=== PATIENT | female | born 1960 | race Caucasian/White ===

== ENCOUNTER 2018-01-02 01:47 | Emergency (ER) | payer OTHER ==
[~2018-01-02] VITALS: Ht 165.1 cm; Wt 70.0 kg
[2018-01-02] MEDS ORDERED: PRED10TA PO (02:33)
[2018-01-02] MEDS ORDERED: OXYC-307 PO (02:33)
[2018-01-02] MEDS ORDERED: BUDE10.2 INH (02:33)
[2018-01-02] MEDS ORDERED: PREG50CA PO (02:33)
[2018-01-02] MEDS ORDERED: CELE200C PO (02:33)
[2018-01-02] MEDS ORDERED: ALBU18HF INH (02:33)
[2018-01-02 03:40] VITALS: BP 129/70
[2018-01-02] MEDS ORDERED: KETOROLAC 30 MG/1 ML ONE (03:58)
[2018-01-02] MEDS ORDERED: KETOROLAC 30 MG/1 ML IM ONE (04:00)
== END 2018-01-02 04:36 | disposition home or self-care (01) ==
LOC: ED 04:30
DX: M25.531 Pain in right wrist (principal)
CPT/HCPCS: 29260; 73110; 96372; 99284; J1885